=== PATIENT | female | born 1970 | race Caucasian/White ===

== ENCOUNTER 2017-08-21 13:23 | Outpatient (CLI) | payer OTHER | END 2017-08-21 13:45 | disposition home or self-care (01) | LOC: SLEEP 13:23 | PROVIDERS: ATTEND Nurse Practitioner | DX: G47.10 Hypersomnia, unspecified (principal); R06.83 Snoring ==

== ENCOUNTER 2018-12-23 17:08 | Emergency (ER) | payer OTHER ==
[~2018-12-23] VITALS: Ht 167.6 cm; Wt 125.2 kg
[2018-12-23] MEDS ORDERED: ONDANSETRON 4 MG/2 ML (SDV) Z0FRAN IVP ONE (17:30)
[2018-12-23] MEDS ORDERED: morphine INJ 10 MG/ML 1ML (SYR OR VIAL) IVP STA ×2 (17:30→18:45)
[2018-12-23] MEDS: NS IV 1000 ML 1,000 ML IV SCH ×2 (17:47→18:31)
[2018-12-23 17:55] LABS: HEMATOCRIT 39 % (35-52); HEMOGLOBIN 13.1 G/DL (11.5-16.0); MEAN CORPUSCULAR HEMOGLOBIN 34 PG (25-34); MEAN CORPUSCULAR HGB CONC 34 G/DL (32-36); MEAN CORPUSCULAR VOLUME 99 FL (80-99); MEAN PLATELET VOLUME 8.8 FL (7.4-10.4); PLATELET COUNT 304 10^3/uL (130-400); WHITE BLOOD COUNT 11.1 10^3/uL (4.3-11.0)
[2018-12-23 17:56] LABS: BASOPHILS % (AUTO) 0 % (0-10); EOSINOPHILS % (AUTO) 0 % (0-10); LYMPHOCYTES # (AUTO) 0.9 X 10^3 (1.0-4.0); LYMPHOCYTES % (AUTO) 8 % (12-44); MONOCYTES # (AUTO) 0.4 X 10^3 (0.0-1.0); MONOCYTES % (AUTO) 4 % (0-12); NEUTROPHILS # (AUTO) 9.8 X 10^3 (1.8-7.8); NEUTROPHILS % (AUTO) 88 % (42-75)
[2018-12-23 18:15] LABS: ALANINE AMINOTRANSFERASE 20 U/L (0-55); ALBUMIN 4.1 GM/DL (3.2-4.5); ALKALINE PHOSPHATASE 111 U/L (40-136); BAND NEUTROPHILS 22 %; BASOPHILS % (MANUAL) 1 %; BILIRUBIN,TOTAL 0.6 MG/DL (0.1-1.0); BUN/CREATININE RATIO 15; CALCIUM 8.8 MG/DL (8.5-10.1); CARBON DIOXIDE 24 MMOL/L (21-32); CHLORIDE 97 MMOL/L (98-107); CREATININE SERUM 0.65 MG/DL (0.60-1.30); EOSINOPHILS % (MANUAL) 0 %; GFR ESTIMATED > 60; GLUCOSE 97 MG/DL (70-105); LYMPHOCYTES % (MANUAL) 12 %; MONOCYTES % (MANUAL) 2 %; NEUTROPHILS % (MANUAL) 63 %; POTASSIUM 3.5 MMOL/L (3.6-5.0); SODIUM 139 MMOL/L (135-145); TOTAL PROTEIN 7.4 GM/DL (6.4-8.2)
[2018-12-23 18:16] LABS: RBC MORPH NORMAL
--- OUTSIDE RECORDS SUMMARY | 2018-12-23 18:23 | XMS REPORT | Continuity of Care Document ---
Author Organization Unknown Address Unknown Allergies There is no data. Medications There is no data. Problems There is no data. Procedures There is no data. Results There is no data. Encounters ACCT No. Visit Date/Time Discharge Status Pt. Type Provider Facility Loc./Unit Complaint [id number] 12/16/2018 08:40:00 12/16/2018 23:59:59 [facility] Outpatient [facility]
--- OUTSIDE RECORDS SUMMARY | 2018-12-23 18:23 | XMS REPORT ---
Author Author BAKARI ROC Organization [facility] Address [address] [place] [id number] Care Team Providers Care Advanced Analytics Associate Name Role Phone ROC VILLEGAS Unavailable PROBLEMS Unknown Problems ALLERGIES No Information ENCOUNTERS Encounter Location Date Diagnosis [address] [address] October, Environmental and seasonal allergies J30.[address] [address] October, Environmental and seasonal allergies J30.[address] [address] Sep, Environmental and seasonal allergies J30.[address] [address] Sep, [address] [address] Sep, Environmental and seasonal allergies J30.[address] [address] Aug, Environmental and seasonal allergies J30.[address] [address] Aug, [address] [address] Aug, Environmental and seasonal allergies J30.[address] [address] Aug, Environmental and seasonal allergies J30.[address] [address] Aug, Environmental and seasonal allergies J30.[address] [address] Jul, Environmental and seasonal allergies J30.[address] [address] 13 Jul, 2018 Environmental and seasonal allergies J30.89 IMMUNIZATIONS No Known Immunizations SOCIAL HISTORY Never Assessed REASON FOR VISIT Shot PLAN OF CARE VITAL SIGNS MEDICATIONS Unknown Medications RESULTS No Results PROCEDURES No Known procedures INSTRUCTIONS MEDICATIONS ADMINISTERED No Known Medications
[2018-12-23] MEDS ORDERED: IOHEXOL 350 MG/ML 100 ML (OMNIPAQUE 350) VIAL IV ONE (19:00)
[2018-12-23] MEDS ORDERED: HOLD METFORMIN - RECEIVED CONTRAST 20 ML VIAL IV SCH (19:00)
[2018-12-23] MEDS ORDERED: CATHETER FLUSH 10 ML SYR IV PRN (19:00)
[2018-12-23] MEDS ORDERED: NS 100 ML (IVPB) BAG IV ONE (19:00)
--- NOTE | 2018-12-23 19:13 | ED Abdominal Pain ---
General Chief Complaint: Abdominal/GI Problems Stated Complaint: HEADACHE; ABD PAIN Nursing Triage Note: Patient c/o abdominal pain, diarrhea, and headache. States that she wasn't feeling good yesterday and then yesterday evening the diarrhea, headache, and abdominal pain began. Reports that her abdomial pain feels like when she had salmonella posioning. Sepsis Screen: No Definite Risk Source of Information: Patient Exam Limitations: No Limitations History of Present Illness Date Seen by Provider: Dec 23, 2018 Time Seen by Provider: 15:05 Initial Comments Patient is a 48-year-old female presents with diffuse cramping abdominal pain associated with 3-4 episodes of watery diarrhea over the past 12 hours., Pain is migratory cramping with sharp episodes is rated mild to moderate. Patient states she has had similar episode over 2 years ago when treated for salmonella neuritis. She denies blood in stools, recent antibiotics or known GI exposure. Associated symptoms include headache, nausea without vomiting. No fever chills or sweats. No other acute symptoms or complaints. History of cholecystectomy and endometrial ablation. Allergies and Home Medications Allergies Coded Allergies: doxycycline (Verified Allergy, Unknown, 12/23/18) metoclopramide (Verified Allergy, Unknown, 12/23/18) sulfamethoxazole (Verified Allergy, Unknown, 12/23/18) trimethoprim (Verified Allergy, Unknown, 12/23/18) Uncoded Allergies: SULFA (Allergy, Unknown, 12/23/18) Patient Home Medication List Home Medication List Reviewed: Yes Review of Systems Review of Systems Constitutional: see HPI EENTM: No Symptoms Reported Respiratory: No Symptoms Reported Cardiovascular: No Symptoms Reported Gastrointestinal: See HPI Genitourinary: No Symptoms Reported Musculoskeletal: no symptoms reported Skin: no symptoms reported Psychiatric/Neurological: No Symptoms Reported Endocrine: No Symptoms Reported Hematologic/Lymphatic: No Symptoms Reported Past Vmvjakh-Elkava-Dihrbe Hx Past Med/Social Hx: Reviewed Nursing Past Med/Soc Hx Patient Social History Alcohol Use: Occasionally Uses Recreational Drug Use: No Smoking Status: Never a Smoker 2nd Hand Smoke Exposure: No Recent Foreign Travel: No Contact w/Someone Who Travel: No Recent Infectious Disease Expo: No Recent Hopitalizations: No Physical Abuse: No Sexual Abuse: No Mistreated: No Fear: No Seasonal Allergies Seasonal Allergies: No Past Medical History Surgeries: Yes (EGD, Colonoscopy, Edometrial ablation, bilateral knee scope, ) Section, Eye Surgery, Gallbladder, Orthopedic Respiratory: No Cardiac: No Neurological: Yes Gastrointestinal: Yes Gastroesophageal Reflux Musculoskeletal: No Endocrine: No HEENT: No (Bilateral lasik procedure) Cancer: No Psychosocial: No Integumentary: No Blood Disorders: No Physical Exam Vital Signs Vital Signs - First Documented 12/23/18 17:24 Temp 97.6 Pulse 111 Resp 20 B/P (MAP) 102/57 (72) Pulse Ox 97 O2 Delivery Room Air Capillary Refill : Less Than 3 Seconds Height/Weight/BMI Height: 5'6.00" Weight: 276lbs. oz. 125.545833ek; BMI Method:Stated General Appearance: WD/WN, mild distress HEENT: PERRL/EOMI, normal ENT inspection Neck: full range of motion, supple Respiratory: chest non-tender, lungs clear, normal breath sounds Gastrointestinal: soft, no pulsatile mass, abnormal bowel sounds; No distended, No guarding, No rebound; tenderness Extremities: normal range of motion, non-tender Back: normal inspection Skin: normal color, warm/dry Focused Exam Sepsis Stage: Ruled Out Progress/Results/Core Measures Results/Orders Lab Results Laboratory Tests Test 12/23/18 17:40 Range/Units White Blood Count 11.1 H 4.3-11.0 10^3/uL Red Blood Count 3.90 L 4.35-5.85 10^6/uL Hemoglobin 13.1 11.5-16.0 G/DL Hematocrit 39 35-52 % Mean Corpuscular Volume 99 80-99 FL Mean Corpuscular Hemoglobin 34 25-34 PG Mean Corpuscular Hemoglobin Concent 34 32-36 G/DL Red Cell Distribution Width 12.0 10.0-14.5 % Platelet Count 304 130-400 10^3/uL Mean Platelet Volume 8.8 7.4-10.4 FL Neutrophils (%) (Auto) 88 H 42-75 % Lymphocytes (%) (Auto) 8 L 12-44 % Monocytes (%) (Auto) 4 0-12 % Eosinophils (%) (Auto) 0 0-10 % Basophils (%) (Auto) 0 0-10 % Neutrophils # (Auto) 9.8 H 1.8-7.8 X 10^3 Lymphocytes # (Auto) 0.9 L 1.0-4.0 X 10^3 Monocytes # (Auto) 0.4 0.0-1.0 X 10^3 Eosinophils # (Auto) 0.0 0.0-0.3 10^3/uL Basophils # (Auto) 0.0 0.0-0.1 10^3/uL Neutrophils % (Manual) 63 % Lymphocytes % (Manual) 12 % Monocytes % (Manual) 2 % Eosinophils % (Manual) 0 % Basophils % (Manual) 1 % Band Neutrophils 22 % Blood Morphology Comment NORMAL Sodium Level 139 135-145 MMOL/L Potassium Level 3.5 L 3.6-5.0 MMOL/L Chloride Level 97 L 98-107 MMOL/L Carbon Dioxide Level 24 21-32 MMOL/L Anion Gap 18 H 5-14 MMOL/L Blood Urea Nitrogen 10 7-18 MG/DL Creatinine 0.65 0.60-1.30 MG/DL Estimat Glomerular Filtration Rate > 60 BUN/Creatinine Ratio 15 Glucose Level 97 70-105 MG/DL Calcium Level 8.8 8.5-10.1 MG/DL Corrected Calcium 8.7 8.5-10.1 MG/DL Total Bilirubin 0.6 0.1-1.0 MG/DL Aspartate Amino Transf (AST/SGOT) 18 5-34 U/L Alanine Aminotransferase (ALT/SGPT) 20 0-55 U/L Alkaline Phosphatase 111 40-136 U/L Total Protein 7.4 6.4-8.2 GM/DL Albumin 4.1 3.2-4.5 GM/DL Serum Test, Qualitative NEGATIVE NEGATIVE My Orders Orders - ANDRIA PURDY DO Cbc With Automated Diff (12/23/18 17:30) Comprehensive Metabolic Panel (12/23/18 17:30) Hs C Reactive Protein (12/23/18 17:30) Stool Culture (12/23/18 17:30) C Difficile Ag + Toxin A/B. (12/23/18 17:30) Isolation Central Supply Req (12/23/18 17:30) Hcg,Qualitative Serum (12/23/18 17:30) Ns Iv 1000 Ml (Sodium Chloride 0.9%) (12/23/18 17:30) Morphine Injection (Morphine Injection (12/23/18 17:30) Ondansetron Injection (Zofran Injectio (12/23/18 17:30) Manual Differential (12/23/18 17:40) Morphine Injection (Morphine Injection (12/23/18 18:45) Ct Abdomen/Pelvis W (12/23/18 18:45) Iohexol Injection (Omnipaque 350 Mg/Ml 1 (12/23/18 19:00) Received Contrast (Hold Metformin- Contr (12/23/18 19:00) Sodium Chloride Flush (Catheter Flush Sy (12/23/18 19:00) Ns (Ivpb) (Sodium Chloride 0.9% Ivpb Bag (12/23/18 19:00) Ketorolac Injection (Toradol Injection) (12/23/18 20:45) Medications Given in ED Current Medications Medications Dose Ordered Sig/Hugo Route Start Time Stop Time Status Last Admin Dose Admin Iohexol 100 ml ONCE ONCE IV 12/23/18 19:00 12/23/18 19:01 DC 12/23/18 19:12 100 ML Ondansetron HCl 4 mg ONCE ONCE IVP 12/23/18 17:30 12/23/18 17:33 DC 12/23/18 17:47 4 MG Sodium Chloride 10 ml NEEDED PRN IV 12/23/18 19:00 12/23/18 19:12 10 ML Sodium Chloride 100 ml ONCE ONCE IV 12/23/18 19:00 12/23/18 19:01 DC 12/23/18 19:12 100 ML Vital Signs/I&O 12/23/18 17:24 Temp 97.6 Pulse 111 Resp 20 B/P (MAP) 102/57 (72) Pulse Ox 97 O2 Delivery Room Air Blood Pressure Mean: 72 Departure Communication (Admissions) CT abdomen and pelvis shows evidence of ascending and transverse colitis. Lab w ork reviewed and nondiagnostic. Stool sample sent with results pending. Patient received symptomatic leave symptoms. Will continue supportive care with instructions to follow-up with PCP tomorrow for stool culture results. Return precautions reviewed. Patient verbalizes understanding. Discharge instructions prior to departure. Impression Primary Impression: Abdominal pain Additional Impression: Colitis Disposition: HOME, SELF-CARE Condition: Improved Departure-Patient Inst. Decision time for Depature: 20:44 Referrals: ROC VILLEGAS MD (PCP/Family) Primary Care Physician Patient Instructions: Colitis, Acute Abdomen (Belly Pain), Adult (DC) Add. Discharge Instructions: Please drink clear liquids only for the next 6-12 hours, then gradually increase to bland diet as tolerated. Take Zofran as needed for nausea, and hydrocodone and Bentyl as needed for pain. Follow-up with your PCP for stool culture results and reevaluation in the next 1-2 days. Return to ED if worsening symptoms. All discharge instructions reviewed with patient and/or family. Voiced understanding. Scripts Ondansetron (Ondansetron Odt) 4 Mg Tab.rapdis 4 MG PO Q6H, #10 TAB Prov: ANDRIA PURDY DO 12/23/18 Hydrocodone/Acetaminophen ([place] 5-325 Tablet) 1 Each Tablet 1 TAB PO Q4-6HR for Pain MDD 10 TABS for 7 Days, #10 TAB Prov: ANDRIA PURDY DO 12/23/18 Dicyclomine HCl (Dicyclomine HCl) 20 Mg Tablet 20 MG PO QID, #10 TAB Prov: ANDRIA PURDY DO 12/23/18 ANDRIA PURDY DO Dec 23, 2018 19:13
--- NOTE | 2018-12-23 19:31 | Diagnostic Imaging Report ---
INDICATION: Generalized abdominal pain and distention with diarrhea for two days. Previous cholecystectomy and tubal ligation. FINDINGS: Lung bases are clear. The gallbladder is absent. Liver, spleen, pancreas and adrenal glands appear normal. There is a left parapelvic cyst. The kidneys are otherwise normal. Uterus, adnexal structures and urinary bladder are normal. No hernias are present. No vascular calcifications are present. The appendix is normal. There is some wall thickening of the ascending and proximal transverse colon with mild inflammation around this. The descending and sigmoid colon appear normal. No ascites, free air or abnormal adenopathy is present. Bone windows appear normal. IMPRESSION: There is nonspecific colitis of the ascending and transverse colon. Dictated by: Dictated on workstation # [id number]
[2018-12-23] MEDS ORDERED: KETOROLAC 30 MG/ML VIAL IVP ONE (20:45)
[2018-12-23] MEDS ORDERED: HYDR-4226 PO (20:46)
[2018-12-23] MEDS ORDERED: ONDA4TAB11 PO (20:46)
[2018-12-23] MEDS ORDERED: DICY20TA10 PO (20:46)
[2018-12-23 21:13] VITALS: BP 110/51
== END 2018-12-23 21:13 | disposition home or self-care (01) ==
LOC: EDUNIT# 17:08 → ER FS 17:09
DX: K52.9 Noninfective gastroenteritis and colitis, unspecified (principal); K21.9 Gastro-esophageal reflux disease without esophagitis; Z88.1 Allergy status to other antibiotic agents; Z88.2 Allergy status to sulfonamides; Z88.8 Allergy status to other drugs, medicaments and biological substances
CPT/HCPCS: 36415; 74177; 80053; 84703; 85007; 85027; 86141; 87015; 87045; 87046; 87077; 87324; 87449; 87899; 96361; 96374; 96375; 96376

== ENCOUNTER 2018-12-25 11:00 | Emergency (ER) | payer OTHER ==
[~2018-12-25] VITALS: Ht 168.9 cm; Wt 124.7 kg
[~2018-12-25 11:00] MED LIST: DICY20TA10 PO; HYDR-4226 PO; ONDA4TAB11 PO
--- NOTE | 2018-12-25 11:15 | NUR ---
Kiersten Delatorre, reports pt reported having an allergy shot today and pt feels pt is having a reaction.
[2018-12-25] MEDS ORDERED: fentaNYL INJECTION 100 MCG/2 ML AMP IVP STA ×2 (11:39→12:45)
[2018-12-25] MEDS ORDERED: LACTATED RINGERS 1,000 ML IV ONE (11:39)
[2018-12-25] MEDS ORDERED: KETOROLAC 30 MG/ML VIAL IVP STA (11:39)
[2018-12-25 11:58] LABS: BASOPHILS % (AUTO) 0 % (0-10); EOSINOPHILS # (AUTO) 0.4 10^3/uL (0.0-0.3); EOSINOPHILS % (AUTO) 6 % (0-10); HEMATOCRIT 36 % (35-52); HEMOGLOBIN 12.1 G/DL (11.5-16.0); LYMPHOCYTES % (AUTO) 13 % (12-44); MEAN CORPUSCULAR HEMOGLOBIN 33 PG (25-34); MEAN CORPUSCULAR HGB CONC 34 G/DL (32-36); MEAN CORPUSCULAR VOLUME 98 FL (80-99); MEAN PLATELET VOLUME 9.1 FL (7.4-10.4); MONOCYTES # (AUTO) 0.6 X 10^3 (0.0-1.0); MONOCYTES % (AUTO) 8 % (0-12); NEUTROPHILS # (AUTO) 5.7 X 10^3 (1.8-7.8); NEUTROPHILS % (AUTO) 74 % (42-75); PLATELET COUNT 249 10^3/uL (130-400); RED CELL DISTRIBUTION WIDTH 12.1 % (10.0-14.5); WHITE BLOOD COUNT 7.7 10^3/uL (4.3-11.0)
--- NOTE | 2018-12-25 12:02 | ED Abdominal Pain ---
General Chief Complaint: Head/Cervical Problems Stated Complaint: ABD PAIN;HEADACHE Nursing Triage Note: Pt ambulatory to rm 7. Pt reports SAVAGE that began on Friday, pt also c/o diarrhea. Pt reports going to [facility] ED on Fri and was told pt was dehydrated. Pt reports "insides feel like they are on fire." Sepsis Screen: No Definite Risk Source of Information: Patient Exam Limitations: No Limitations History of Present Illness Date Seen by Provider: Dec 25, 2018 Time Seen by Provider: 11:31 Initial Comments Here with complaint of increasing abdominal pain central upper and right side. Did an evaluation 2 days ago for the same and was found to have colitis in the ascending and transverse portion per report. Patient has taken her medicines but still was not feeling well. Still has headache. She has not been able to drink well. She still has diarrhea without blood. No vomiting. She is still concerned about Salmonella. Stool cultures are pending. She has no contacts for Salmonella reported or noted. Denies dysuria. Headache is global and throbbing type. Cramping feeling worse when getting ready to have diarrhea bowel movement. Timing/Duration: 3-4 Days Severity/Quality: Moderate, Cramping Location: RUQ, LUQ, RLQ Radiation: No Radiation, RUQ, LUQ, RLQ Activities at Onset: None Modifying Factors: Improves With Defecating; Worsens With Eating; Improves With Resting Associated Symptoms: No Back Pain; Fatigue; No Swelling/Mass in Abdomen, No Weakness Allergies and Home Medications Allergies Coded Allergies: doxycycline (Verified Allergy, Unknown, 12/23/18) metoclopramide (Verified Allergy, Unknown, 12/23/18) sulfamethoxazole (Verified Allergy, Unknown, 12/23/18) trimethoprim (Verified Allergy, Unknown, 12/23/18) Uncoded Allergies: SULFA (Allergy, Unknown, 12/23/18) Home Medications Dicyclomine HCl 20 Mg Tablet, 20 MG PO QID Prescribed by: ANDRIA PURDY on 12/23/182045 Hydrocodone/Acetaminophen 1 Each Tablet, 1 TAB PO Q4-6HR Prescribed by: ANDRIA PURDY on 12/23/182045 Ondansetron 4 Mg Tab.rapdis, 4 MG PO Q6H Prescribed by: ANDRIA PURDY on 12/23/182045 Patient Home Medication List Home Medication List Reviewed: Yes Review of Systems Review of Systems Constitutional: see HPI; No chills, No fever EENTM: No Symptoms Reported Respiratory: No Symptoms Reported Cardiovascular: Denies Chest Pain, Denies Edema; Lightheadedness, Palpitations Gastrointestinal: Abdominal Pain, Diarrhea, Nausea; Denies Vomiting Genitourinary: No Symptoms Reported Musculoskeletal: no symptoms reported Skin: no symptoms reported Psychiatric/Neurological: No Symptoms Reported All Other Systems Reviewed Negative Unless Noted: Yes Past Lqftdky-Hrdybi-Pzjbmv Hx Past Med/Social Hx: Reviewed Nursing Past Med/Soc Hx Patient Social History Alcohol Use: Occasionally Uses Recreational Drug Use: No 2nd Hand Smoke Exposure: No Recent Foreign Travel: No Contact w/Someone Who Travel: No Recent Infectious Disease Expo: No Recent Hopitalizations: No Seasonal Allergies Seasonal Allergies: No Past Medical History Surgeries: Yes (EGD, Colonoscopy, Edometrial ablation, bilateral knee scope, ) Section, Eye Surgery, Gallbladder, Orthopedic Respiratory: No Cardiac: No Neurological: Yes Gastrointestinal: Yes Gastroesophageal Reflux Musculoskeletal: No Endocrine: No HEENT: No (Bilateral lasik procedure) Cancer: No Psychosocial: No Integumentary: No Blood Disorders: No Family Medical History Reviewed Nursing Family Hx Physical Exam Vital Signs Vital Signs - First Documented 12/25/18 11:06 Temp 97.2 Pulse 93 Resp 18 B/P (MAP) 128/92 (104) Pulse Ox 97 O2 Delivery Room Air Capillary Refill : Less Than 3 Seconds Height/Weight/BMI Height: 5'6.50" Weight: 275lbs. oz. 124.408362zh; BMI Method:Stated General Appearance: WD/WN, no apparent distress HEENT: PERRL/EOMI, pharynx normal Neck: full range of motion, supple Respiratory: lungs clear, normal breath sounds Cardiovascular: regular rate, rhythm, no murmur Gastrointestinal: non tender, soft Extremities: non-tender, normal inspection Back: normal inspection, no CVA tenderness, no vertebral tenderness Neurologic/Psychiatric: alert, oriented x 3 Skin: normal color, warm/dry Progress/Results/Core Measures Results/Orders Lab Results Laboratory Tests Test 12/25/18 11:48 12/25/18 12:00 Range/Units White Blood Count 7.7 4.3-11.0 10^3/uL Red Blood Count 3.69 L 4.35-5.85 10^6/uL Hemoglobin 12.1 11.5-16.0 G/DL Hematocrit 36 35-52 % Mean Corpuscular Volume 98 80-99 FL Mean Corpuscular Hemoglobin 33 25-34 PG Mean Corpuscular Hemoglobin Concent 34 32-36 G/DL Red Cell Distribution Width 12.1 10.0-14.5 % Platelet Count 249 130-400 10^3/uL Mean Platelet Volume 9.1 7.4-10.4 FL Neutrophils (%) (Auto) 74 42-75 % Lymphocytes (%) (Auto) 13 12-44 % Monocytes (%) (Auto) 8 0-12 % Eosinophils (%) (Auto) 6 0-10 % Basophils (%) (Auto) 0 0-10 % Neutrophils # (Auto) 5.7 1.8-7.8 X 10^3 Lymphocytes # (Auto) 1.0 1.0-4.0 X 10^3 Monocytes # (Auto) 0.6 0.0-1.0 X 10^3 Eosinophils # (Auto) 0.4 H 0.0-0.3 10^3/uL Basophils # (Auto) 0.0 0.0-0.1 10^3/uL Sodium Level 140 135-145 MMOL/L Potassium Level 3.3 L 3.6-5.0 MMOL/L Chloride Level 104 98-107 MMOL/L Carbon Dioxide Level 23 21-32 MMOL/L Anion Gap 13 5-14 MMOL/L Blood Urea Nitrogen 6 L 7-18 MG/DL Creatinine 0.71 0.60-1.30 MG/DL Estimat Glomerular Filtration Rate > 60 BUN/Creatinine Ratio 8 Glucose Level 88 70-105 MG/DL Calcium Level 8.7 8.5-10.1 MG/DL Corrected Calcium 8.9 8.5-10.1 MG/DL Magnesium Level 2.0 1.8-2.4 MG/DL Total Bilirubin 0.4 0.1-1.0 MG/DL Aspartate Amino Transf (AST/SGOT) 16 5-34 U/L Alanine Aminotransferase (ALT/SGPT) 21 0-55 U/L Alkaline Phosphatase 104 40-136 U/L Total Protein 6.6 6.4-8.2 GM/DL Albumin 3.7 3.2-4.5 GM/DL Urine Color YELLOW Urine Clarity CLEAR Urine pH 6 5-9 Urine Specific Oliver 1.015 L 1.016-1.022 Urine Protein 2+ H NEGATIVE Urine Glucose (UA) NEGATIVE NEGATIVE Urine Ketones 4+ H NEGATIVE Urine Nitrite NEGATIVE NEGATIVE Urine Bilirubin NEGATIVE NEGATIVE Urine Urobilinogen NORMAL NORMAL MG/DL Urine Leukocyte Esterase 1+ H NEGATIVE Urine RBC (Auto) 3+ H NEGATIVE Urine RBC RARE /HPF Urine WBC 0-2 /HPF Urine Squamous Epithelial Cells 5-10 /HPF Urine Crystals NONE /LPF Urine Bacteria FEW H /HPF Urine Casts NONE /LPF Urine Mucus SMALL H /LPF Urine Culture Indicated NO My Orders Orders - STEFANIA HYLTON MD Cbc With Automated Diff (12/25/18 11:39) Comprehensive Metabolic Panel (12/25/18 11:39) Magnesium (12/25/18 11:39) Ua Culture If Indicated (12/25/18 11:39) Ed Iv/Invasive Line Start (12/25/18 11:39) Lactated Ringers (Lr 1000 Ml Iv Solution (12/25/18 11:39) Fentanyl Injection (Sublimaze Injection (12/25/18 11:39) Ketorolac Injection (Toradol Injection) (12/25/18 11:39) D5 Ns 1000 Ml Iv Solution (Dextrose 5%/0 (12/25/18 12:41) Fentanyl Injection (Sublimaze Injection (12/25/18 12:45) Hs C Reactive Protein (12/25/18 15:06) Dexamethasone Injection (Decadron Inject (12/25/18 15:30) Medications Given in ED Current Medications Medications Dose Ordered Sig/Hugo Route Start Time Stop Time Status Last Admin Dose Admin Lactated Ringer's 1,000 ml @ 0 mls/hr Q0M ONCE IV 12/25/18 11:39 12/25/18 11:44 DC 12/25/18 11:55 1,000 MLS/HR Vital Signs/I&O 12/25/18 11:06 Temp 97.2 Pulse 93 Resp 18 B/P (MAP) 128/92 (104) Pulse Ox 97 O2 Delivery Room Air Blood Pressure Mean: 104 Progress Progress Note : Progress Note And evaluated. IV, labs, UA, lactated Ringer's 1 L bolus, fentanyl 50 g IV and Toradol 30 mg IV ordered. Monitor patient. Patient does have 4+ ketones in the urine. Repeat fluids bolus with D5NS 1 L. Patient did get second dose of fentanyl for headache. This has helped. 1520: Patient is a little better but still has mild headache. All of her labs were reviewed and actually are much improved from 2 days ago and showed no inflammatory response. Given her headache, we will use secondary line of treatment with Decadron and this potentially can also help with the colitis symptoms. This was discussed with patient and family who agree. Otherwise no reason for admission at this point and no reason for further evaluation including CT at this point. Discharge instructions given. Discharged home with instructions. Patient verbalize understanding instructions and agreement with plan. Departure Impression Primary Impression: Headache Qualified Codes: R51 - Headache Additional Impressions: Diarrhea Qualified Codes: R19.7 - Diarrhea, unspecified Dehydration Disposition: HOME, SELF-CARE Condition: Stable Departure-Patient Inst. Decision time for Depature: 15:28 Referrals: ROC VILLEGAS MD (PCP/Family) Primary Care Physician Patient Instructions: Dehydration, Adult (DC), Diarrhea in Adolescents and Adults, Headache, Adult (DC) Add. Discharge Instructions: All discharge instructions reviewed with patient and/or family. Voiced understanding. You should initiate probiotics. You can take this as capsules or you can get it in yogurt supplements. Either or both are fine. Drink plenty of fluids. You should stick with clear light diet over the next few days and then slowly advance as tolerated as he started to feel better. Follow-up with your doctor early next week for recheck and further evaluation. Return for worse pain, fever, vomiting, weakness, breathing problems, blood in your vomit or stool, increasing abdominal pain or other concerns as needed. STEFANIA HYLTON MD Dec 25, 2018 12:02
[2018-12-25 12:10] LABS: ALANINE AMINOTRANSFERASE 21 U/L (0-55); ALBUMIN 3.7 GM/DL (3.2-4.5); ALKALINE PHOSPHATASE 104 U/L (40-136); BILIRUBIN,TOTAL 0.4 MG/DL (0.1-1.0); BUN/CREATININE RATIO 8; CALCIUM 8.7 MG/DL (8.5-10.1); CARBON DIOXIDE 23 MMOL/L (21-32); CHLORIDE 104 MMOL/L (98-107); CREATININE SERUM 0.71 MG/DL (0.60-1.30); GFR ESTIMATED > 60; GLUCOSE 88 MG/DL (70-105); POTASSIUM 3.3 MMOL/L (3.6-5.0); SODIUM 140 MMOL/L (135-145); TOTAL PROTEIN 6.6 GM/DL (6.4-8.2)
[2018-12-25 12:13] LABS: BILIRUBIN,URINE NEGATIVE (NEGATIVE); CLARITY,URINE CLEAR; COLOR,URINE YELLOW; GLUCOSE, URINE (UA) NEGATIVE (NEGATIVE); KETONES,URINE 4+ (NEGATIVE); LEUKOCYTE ESTERASE ,URINE 1+ (NEGATIVE); NITRITE,URINE NEGATIVE (NEGATIVE); PH,URINE 6 (5-9); PROTEIN,URINE 2+ (NEGATIVE); UROBILINOGEN,URINE NORMAL (NORMAL)
[2018-12-25 12:22] LABS: BACTERIA,URINE FEW /HPF; RBC,URINE RARE /HPF; WBC,URINE 0-2 /HPF
[2018-12-25] MEDS ORDERED: D5 NS 1000 ML IV SOLUTION 1,000 ML IV STA (12:41)
--- NOTE | 2018-12-25 13:37 | NUR ---
Pt reports pain has resolved at this time.
[2018-12-25] MEDS ORDERED: DEXAMETHASONE 10 MG/ML (DECADRON) 1 ML VIAL IV ONE (15:30)
[2018-12-25 15:42] VITALS: BP 118/61
--- OUTSIDE RECORDS SUMMARY | 2018-12-25 19:14 | XMS REPORT | Continuity of Care Document ---
Author Organization Unknown Address Unknown Allergies There is no data. Medications There is no data. Problems There is no data. Procedures There is no data. Results There is no data. Encounters ACCT No. Visit Date/Time Discharge Status Pt. Type Provider Facility Loc./Unit Complaint [id number] 12/25/2018 09:20:00 [facility] Outpatient ROC VILLEGAS [facility]
== END 2018-12-25 15:42 | disposition home or self-care (01) ==
LOC: EDUNIT# 11:00 → ER 11:01
DX: E86.0 Dehydration (principal); R19.7 Diarrhea, unspecified; R51 Headache; K21.9 Gastro-esophageal reflux disease without esophagitis; Z87.19 Personal history of other diseases of the digestive system; Z88.1 Allergy status to other antibiotic agents; Z88.2 Allergy status to sulfonamides; Z88.8 Allergy status to other drugs, medicaments and biological substances
CPT/HCPCS: 36415; 80053; 81000; 83735; 85025; 86141; 96361; 96374; 96375; 96376

== ENCOUNTER → 2019-10-08 | Outpatient (CLI) | payer BC ==
[2019-10-08 13:07] LABS: ALANINE AMINOTRANSFERASE 15 U/L (0-55); ALBUMIN 4.1 GM/DL (3.2-4.5); ALKALINE PHOSPHATASE 119 U/L (40-136); BILIRUBIN,TOTAL 0.5 MG/DL (0.1-1.0); BUN/CREATININE RATIO 19; CALCIUM 9.1 MG/DL (8.5-10.1); CARBON DIOXIDE 26 MMOL/L (21-32); CHLORIDE 101 MMOL/L (98-107); CREATININE SERUM 0.75 MG/DL (0.60-1.30); GFR ESTIMATED > 60; GLUCOSE 96 MG/DL (70-105); POTASSIUM 4.1 MMOL/L (3.6-5.0); SODIUM 139 MMOL/L (135-145)
[2019-10-08 15:45] LABS: HDL CHOLESTEROL 60 MG/DL (40-60)
[2019-10-08 16:18] LABS: TRIGLYCERIDES 92 MG/DL (<150); VLDL CHOLESTEROL 18 MG/DL (5-40)
[2019-10-08 16:23] LABS: CHOLESTEROL 205 MG/DL (< 200)
== END ==
LOC: LAB FS 11:15
PROVIDERS: ATTEND Family Medicine
DX: Z00.00 Encounter for general adult medical examination without abnormal findings (principal)
CPT/HCPCS: 36415; 80053; 80061; 84443

== ENCOUNTER → 2019-11-01 | Outpatient (CLI) | payer BC ==
[2019-11-02 15:45] LABS: ALBUMIN 4.2 GM/DL (3.2-4.5); BILIRUBIN,DIRECT 0.2 MG/DL (0.0-0.3); BILIRUBIN,INDIRECT 0.3 MG/DL; BILIRUBIN,TOTAL 0.5 MG/DL (0.1-1.0); TOTAL PROTEIN 7.5 GM/DL (6.4-8.2)
== END ==
LOC: LAB FS 18:14
PROVIDERS: ATTEND Family Medicine
DX: Z51.81 Encounter for therapeutic drug level monitoring (principal); Z79.899 Other long term (current) drug therapy
CPT/HCPCS: 36415; 80076

== ENCOUNTER → 2019-12-02 | Outpatient (CLI) | payer BC ==
[2019-12-02 13:06] LABS: BILIRUBIN,DIRECT < 0.2 MG/DL (0.0-0.3); BILIRUBIN,INDIRECT 0.1 MG/DL; BILIRUBIN,TOTAL 0.3 MG/DL (0.1-1.0)
[2019-12-02 13:07] LABS: ALANINE AMINOTRANSFERASE 17 U/L (0-55); ALBUMIN 3.9 GM/DL (3.2-4.5); ALKALINE PHOSPHATASE 102 U/L (40-136); TOTAL PROTEIN 6.7 GM/DL (6.4-8.2)
== END ==
LOC: LAB FS 10:08
PROVIDERS: ATTEND Family Medicine
DX: Z01.89 Encounter for other specified special examinations (principal); Z79.899 Other long term (current) drug therapy
CPT/HCPCS: 36415; 80076

== ENCOUNTER 2020-08-25 11:07 | Emergency (ER) | payer BC ==
[~2020-08-25] VITALS: Ht 165.1 cm; Wt 117.1 kg
[2020-08-25] MEDS ORDERED: NS IV 1000 ML 1,000 ML IV STA ×2 (11:22→12:51)
--- NOTE | 2020-08-25 11:37 | ED General ---
General Chief Complaint: Dizziness/Syncope Stated Complaint: DIZZINESS | LIGHT HEADED Nursing Triage Note: Patient reports she had gastric bypass surgery on August 07, states she has not been able to keep up with drinking fluids, states she began feeling more weak, fatigued, and lightheaded yesterday. Patient reports she saw Dr. Villegas in the office today and they were unable to get a blood pressure reading. Patient referred to the ED for evaluation and treatment. Nursing Sepsis Screen: No Definite Risk Source of Information: Patient History of Present Illness Date Seen by Provider: Aug 25, 2020 Time Seen by Provider: 11:07 Initial Comments 50-year-old female presents to the ED with complaints of feeling weak, fatigued, lightheaded and dehydrated. She had a gastric bypass surgery with Dr. Wesley Bates from [facility] on August 07. She has had trouble trying to drink enough fluids in the last few days. She was seen for a checkup with Dr. Craig on Friday of this week and was told that she was needed to drink more fluids at that visit. She has continued have more trouble drinking fluids since then. She has had near syncopal episodes at home. She is also having trouble trying to eat or get any protein in her system. She states that the thought of eating makes her feel nauseated. She has had loose stools. She denies any fever or chills. She has had mild aching in her abdomen from the surgery but no severe pain. She denies any burning or pain with urination. She has intermittent nausea but no vomiting. She had gone to Dr. Villegas today for routine checkup and because of still feeling so poorly they referred her to the emergency department. Timing/Duration: 3-4 Days Severity: Severe Modifying Factors: worse with Movement Associated Systoms: No Chest Pain, No Cough, No Diaphoresis, No Fever/Chills, No Headaches; Malaise; No Rash, No Seizure, No Shortness of Air, No Syncope (near syncope); Weakness (generalized) Allergies and Home Medications Allergies Coded Allergies: adhesive (Verified Allergy, Unknown, 08/25/20) doxycycline (Verified Allergy, Unknown, 12/23/18) metoclopramide (Verified Allergy, Unknown, 12/23/18) sulfamethoxazole (Verified Allergy, Unknown, 12/23/18) trimethoprim (Verified Allergy, Unknown, 12/23/18) Uncoded Allergies: SULFA (Allergy, Unknown, 12/23/18) Home Medications Dicyclomine HCl 20 Mg Tablet, 20 MG PO QID Prescribed by: ANDRIA PURDY on 12/23/182045 Hydrocodone/Acetaminophen 1 Each Tablet, 1 TAB PO Q4-6HR Prescribed by: ANDRIA PURDY on 12/23/182045 Ondansetron 4 Mg Tab.rapdis, 4 MG PO Q6H Prescribed by: ANDRIA PURDY on 12/23/182045 Patient Home Medication List Home Medication List Reviewed: Yes Review of Systems Review of Systems Constitutional: No chills, No diaphoresis; dizziness (especially with standing and changing positions); No fever; malaise, weakness (general) EENTM: no symptoms reported Respiratory: No cough, No short of breath Cardiovascular: No chest pain, No edema, No syncope (near syncope several times in last few days) Gastrointestinal: abdominal pain (mild diffuse aching ), diarrhea (loose stools since surgery), loss of appetite (food does not sound good and makes her na useated thinking of eating), nausea; No vomiting Genitourinary: decreased output; No dysuria, No frequency Musculoskeletal: no symptoms reported Skin: No rash Psychiatric/Neurological: Denies Headache, Denies Numbness, Denies Paresthesia; Weakness (general) Hematologic/Lymphatic: No Symptoms Reported Immunological/Allergic: no symptoms reported Past Xfhxvqo-Toraod-Hekzoo Hx Past Med/Social Hx: Reviewed Nursing Past Med/Soc Hx Patient Social History Alcohol Use: Occasionally Uses Smoking Status: Never a Smoker 2nd Hand Smoke Exposure: No Recent Infectious Disease Expo: No Recent Hopitalizations: No Seasonal Allergies Seasonal Allergies: No Past Medical History Surgeries: Yes (EGD, Colonoscopy, Edometrial ablation, bilateral knee scope,gastric bypass) Section, Eye Surgery, Gallbladder, Orthopedic Respiratory: No Cardiac: No Neurological: No Genitourinary: No Gastrointestinal: Yes Gastroesophageal Reflux Musculoskeletal: No Endocrine: No HEENT: No (Bilateral lasik procedure) Cancer: No Psychosocial: No Integumentary: No Blood Disorders: No Physical Exam Vital Signs Vital Signs - First Documented 08/25/20 11:08 Temp 37.1 Pulse 79 Resp 18 B/P (MAP) 125/93 (104) Pulse Ox 99 O2 Delivery Room Air Capillary Refill : Less Than 3 Seconds Height, Weight, BMI Height: 5'6.50" Weight: 275lbs. oz. [id number]; 42.00 BMI Method:Stated General Appearance: Mild Distress, Obese HEENT: PERRL/EOMI; No Moist Mucous Membranes (slightly dry mucous membranes) Neck: Full Range of Motion, Non Tender, Supple Respiratory: Chest Non Tender, Lungs Clear, Normal Breath Sounds, No Accessory Muscle Use, No Respiratory Distress Cardiovascular: Regular Rate, Rhythm, Normal Peripheral Pulses Gastrointestinal: Normal Bowel Sounds, No Pulsatile Mass, Soft Extremity: Normal Capillary Refill, No Pedal Edema Neurologic/Psychiatric: Alert, Oriented x3, client care coordinator II-XII Norm as Tested Skin: Normal Color, Warm/Dry Progress/Results/Core Measures Suspected Sepsis Recent Fever Within 48 Hours: No Infection Criteria Present: None New/Unexplained Altered Menta: No Sepsis Screen: No Definite Risk SIRS Temperature: Pulse: 79 Respiratory Rate: 18 Laboratory Tests 08/25/20 11:35: White Blood Count 4.7 Blood Pressure 125 /93 Mean: 104 Laboratory Tests 08/25/20 11:35: Creatinine 0.78, Platelet Count 278, Total Bilirubin 0.7 Results/Orders Lab Results Laboratory Tests Test 08/25/20 11:35 08/25/20 12:02 Range/Units White Blood Count 4.7 4.3-11.0 10^3/uL Red Blood Count 4.30 L 4.35-5.85 10^6/uL Hemoglobin 14.2 11.5-16.0 G/DL Hematocrit 42 35-52 % Mean Corpuscular Volume 97 80-99 FL Mean Corpuscular Hemoglobin 33 25-34 PG Mean Corpuscular Hemoglobin Concent 34 32-36 G/DL Red Cell Distribution Width 12.6 10.0-14.5 % Platelet Count 278 130-400 10^3/uL Mean Platelet Volume 10.2 7.4-10.4 FL Immature Granulocyte % (Auto) 0 % Neutrophils (%) (Auto) 57 42-75 % Lymphocytes (%) (Auto) 29 12-44 % Monocytes (%) (Auto) 12 0-12 % Eosinophils (%) (Auto) 2 0-10 % Basophils (%) (Auto) 1 0-10 % Neutrophils # (Auto) 2.7 1.8-7.8 X 10^3 Lymphocytes # (Auto) 1.4 1.0-4.0 X 10^3 Monocytes # (Auto) 0.6 0.0-1.0 X 10^3 Eosinophils # (Auto) 0.1 0.0-0.3 10^3/uL Basophils # (Auto) 0.0 0.0-0.1 10^3/uL Immature Granulocyte # (Auto) 0.0 0.0-0.1 10^3/uL Sodium Level 140 135-145 MMOL/L Potassium Level 3.3 L 3.6-5.0 MMOL/L Chloride Level 100 98-107 MMOL/L Carbon Dioxide Level 24 21-32 MMOL/L Anion Gap 16 H 5-14 MMOL/L Blood Urea Nitrogen 9 7-18 MG/DL Creatinine 0.78 0.60-1.30 MG/DL Estimat Glomerular Filtration Rate > 60 BUN/Creatinine Ratio 12 Glucose Level 93 70-105 MG/DL Calcium Level 9.3 8.5-10.1 MG/DL Corrected Calcium 9.1 8.5-10.1 MG/DL Magnesium Level 2.1 1.6-2.4 MG/DL Total Bilirubin 0.7 0.1-1.0 MG/DL Aspartate Amino Transf (AST/SGOT) 184 H 5-34 U/L Alanine Aminotransferase (ALT/SGPT) 430 H 0-55 U/L Alkaline Phosphatase 176 H 40-136 U/L Troponin I < 0.30 <0.30 NG/ML Total Protein 7.4 6.4-8.2 GM/DL Albumin 4.3 3.2-4.5 GM/DL Lipase 112 H 8-78 U/L Urine Color YELLOW Urine Clarity SL CLOUDY Urine pH 6.5 5-9 Urine Specific [place] <=1.005 1.016-1.022 Urine Protein NEGATIVE NEGATIVE Urine Glucose (UA) NEGATIVE NEGATIVE Urine Ketones TRACE H NEGATIVE Urine Nitrite NEGATIVE NEGATIVE Urine Bilirubin NEGATIVE NEGATIVE Urine Urobilinogen 0.2 < = 1.0 MG/DL Urine Leukocyte Esterase NEGATIVE NEGATIVE Urine RBC (Auto) NEGATIVE NEGATIVE Urine RBC NONE /HPF Urine WBC 2-5 /HPF Urine Squamous Epithelial Cells 25-50 H /HPF Urine Crystals NONE /LPF Urine Bacteria MODERATE H /HPF Urine Casts NONE /LPF Urine Mucus NEGATIVE /LPF Urine Culture Indicated NO My Orders Orders - CARYN TATE MD Comprehensive Metabolic Panel (08/25/20 11:13) Lipase (08/25/20 11:13) Ua Culture If Indicated (08/25/20 11:13) Ed Iv/Invasive Line Start (08/25/20 11:13) Cbc With Automated Diff (08/25/20 11:13) Ekg Tracing (08/25/20 11:13) Monitor-Rhythm Ecg Trace Only (08/25/20 11:13) Magnesium (08/25/20 11:13) Troponin I Fs (08/25/20 11:13) Orthostatic Vital Signs (Adult (08/25/20 11:22) Ns Iv 1000 Ml (Sodium Chloride 0.9%) (08/25/20 11:22) Pantoprazole Injection (Protonix Injecti (08/25/20 12:31) Promethazine Injection (Phenergan Injec (08/25/20 12:51) Thiamine Injection (Vitamin B-1 Injectio (08/25/20 12:51) Ns Iv 1000 Ml (Sodium Chloride 0.9%) (08/25/20 12:51) Ketorolac Injection (Toradol Injection) (08/25/20 13:15) Medications Given in ED Current Medications Medications Dose Ordered Sig/Hugo Route Start Time Stop Time Status Last Admin Dose Admin Ketorolac Tromethamine 30 mg ONCE ONCE IVP 08/25/20 13:15 08/25/20 13:16 DC 08/25/20 13:16 30 MG Vital Signs/I&O 08/25/20 08/25/20 11:08 12:01 Temp 37.1 Pulse 79 79 76 80 Resp 18 B/P (MAP) 125/93 (104) 115/56 (75) 118/75 (89) 102/58 (73) Pulse Ox 99 O2 Delivery Room Air Capillary Refill : Less Than 3 Seconds Blood Pressure Mean: 104 Progress Note #1: Progress Note obtain labs, ECG, UA, electrolytes. Place on monitor technician to watch heart rate and rhythm since she has had recent gastric bypass and is complaining of near syncope and dehydration. Currently she is sinus rhythm with a rate of 80 without ectopy. Check cardiac enzymes as well. Check Orthostatic vital signs. Differential diagnosis included dehydration, electrolyte imbalance, UTI, myocardial infarction, hypomagnesemia, hypokalemia, acute renal failure. Give IVF 1 L NS bolus to start trying to help with hydration. Progress Note #2: Time: 11:58 Progress Note CBC without acute significant abnormality and has normal WBC of 4.7 with normal differential. ECG is a sinus rhythm with rate of 68 bpm without ectopy but has artifact on tracing. No acute ST elevation. Telemetry monitoring continues to show sinus rhythm with rate 70s. Progress Note #3: Time: 12:17 Progress Note d/w Dr. Wesley Bates from [facility]. Updated about vitals and exam and labs so far. UA pending. He recommends IV thiamine, IV phenergan if available, IF not then Zofran. CT scan if having pain and concern for ulceration or perforation. So far I advised him that she was not having signs of perforation or ulceration to indicate need for CT scan at this point. UA still pending but in terms of LFTs elevated he reports that is common after surgery and will stay up sometimes up to a year post surgery before normalizing and can be related to rapid weight loss and surgery both. If she is able to be hydrated and treated at home then continue that way and he can recheck her early next week and do EGD if needed to look for an ulceration. Progress Note #4: Time: 12:47 Progress Note Updated pt and her son. With labs looking ok and after review with Dr. Bates will give meds of Thiamine 100 mg IM, Phenergan 25 mg IM, Saline 1 L IV for 2nd bolus of a Liter. Plan discharge to home after this and encourage her to continue with gatorade and oral intake at home. Solution Sales Senior Executive on follow up and return precautions. Check with clinic early next week if needed for continued concerns with Dr. Bates. Progress Note #5: Time: 13:08 Progress Note While getting phenergan, Thiamine, Protonix and 2nd Liter of NS pt told nurse that she has a headache now so will give a single dose of Toradol. In general she should avoid NSAIDS with the bypass, especially by mouth, but as a 1 time dose by IV she should be ok. If she still has a headache can give Acetaminophen on top of that. ECG Initial ECG Impression Date: Aug 25, 2020 Initial ECG Impression Time: 11:44 Initial ECG Rate: 68 Initial ECG Rhythm: Normal Sinus Initial ECG Comparisson: No Previous ECG Available Comment Normal sinus rhythm with rate fo 68 bpm and artifact on tracing. Low voltage in precordial leads. QT interval of 405 ms and QTc interval of [address] elevation. No prior tracing immediately available for compaison. Departure Impression Primary Impression: Dehydration Additional Impressions: Near syncope S/P gastric bypass Disposition: 01 HOME, SELF-CARE Condition: Stable Departure-Patient Inst. Decision time for Depature: 12:58 Referrals: ROC VILLEGAS MD (PCP/Family) Primary Care Physician Patient Instructions: Dehydration, Adult ED, Near Fainting (DC), Hattie-en-Y Gastric Bypass (DC) Add. Discharge Instructions: Continue to sip on fluids and push fluids and protein at home. Follow up with Dr. Bates next week if not improving or having more problems/concerns. Return or seek medical care sooner over the weekend if having problems and not able to make it until you can see Dr. Bates early next week if needed. All discharge instructions reviewed with patient and/or family. Voiced understanding. CARYN TATE MD Aug 25, 2020 11:36
[2020-08-25 11:54] LABS: HEMATOCRIT 42 % (35-52); HEMOGLOBIN 14.2 G/DL (11.5-16.0); LYMPHOCYTES % (AUTO) 29 % (12-44); MEAN CORPUSCULAR HEMOGLOBIN 33 PG (25-34); MEAN CORPUSCULAR HGB CONC 34 G/DL (32-36); MEAN CORPUSCULAR VOLUME 97 FL (80-99); MEAN PLATELET VOLUME 10.2 FL (7.4-10.4); MONOCYTES % (AUTO) 12 % (0-12); NEUTROPHILS % (AUTO) 57 % (42-75); PLATELET COUNT 278 10^3/uL (130-400); WHITE BLOOD COUNT 4.7 10^3/uL (4.3-11.0)
[2020-08-25 11:55] LABS: BASOPHILS % (AUTO) 1 % (0-10); EOSINOPHILS # (AUTO) 0.1 10^3/uL (0.0-0.3); EOSINOPHILS % (AUTO) 2 % (0-10); LYMPHOCYTES # (AUTO) 1.4 X 10^3 (1.0-4.0); MONOCYTES # (AUTO) 0.6 X 10^3 (0.0-1.0); NEUTROPHILS # (AUTO) 2.7 X 10^3 (1.8-7.8)
[2020-08-25 12:00] LABS: BUN/CREATININE RATIO 12; CALCIUM 9.3 MG/DL (8.5-10.1); CARBON DIOXIDE 24 MMOL/L (21-32); CHLORIDE 100 MMOL/L (98-107); CREATININE SERUM 0.78 MG/DL (0.60-1.30); GFR ESTIMATED > 60; GLUCOSE 93 MG/DL (70-105); POTASSIUM 3.3 MMOL/L (3.6-5.0); SODIUM 140 MMOL/L (135-145)
[2020-08-25 12:01] VITALS: BP_SYST 102; BP_SYST 115; BP_SYST 118; BP_DIAS 56; BP_DIAS 58; BP_DIAS 75
[2020-08-25 12:01] LABS: ALANINE AMINOTRANSFERASE 430 U/L (0-55); ALBUMIN 4.3 GM/DL (3.2-4.5); ALKALINE PHOSPHATASE 176 U/L (40-136); BILIRUBIN,TOTAL 0.7 MG/DL (0.1-1.0); LIPASE 112 U/L (8-78); MAGNESIUM 2.1 MG/DL (1.6-2.4); TOTAL PROTEIN 7.4 GM/DL (6.4-8.2)
[2020-08-25 12:28] LABS: CLARITY,URINE SL CLOUDY; COLOR,URINE YELLOW
[2020-08-25 12:29] LABS: BACTERIA,URINE MODERATE /HPF; BILIRUBIN,URINE NEGATIVE (NEGATIVE); GLUCOSE, URINE (UA) NEGATIVE (NEGATIVE); KETONES,URINE TRACE (NEGATIVE); LEUKOCYTE ESTERASE ,URINE NEGATIVE (NEGATIVE); NITRITE,URINE NEGATIVE (NEGATIVE); PH,URINE 6.5 (5-9); PROTEIN,URINE NEGATIVE (NEGATIVE); SQUAMOUS EPITHELIAL CELL,UR 25-50 /HPF
[2020-08-25] MEDS ORDERED: PANTOPRAZOLE 40 MG (PROTONIX) VIAL IV STA (12:31)
[2020-08-25] MEDS ORDERED: PROMETHAZINE INJ 25 MG/ML (PHENERGAN) AMP IVP STA (12:31)
[2020-08-25] MEDS ORDERED: PROMETHAZINE INJ 25 MG/ML (PHENERGAN) AMP IM STA (12:51)
[2020-08-25] MEDS ORDERED: THIAMINE 100 MG/ML 2 ML (VITAMIN B-1) VIAL IM STA (12:51)
[2020-08-25] MEDS ORDERED: KETOROLAC 30 MG/ML VIAL IVP ONE (13:15)
[2020-08-25 14:00] VITALS: BP 117/75
== END 2020-08-25 14:00 | disposition home or self-care (01) ==
LOC: EDUNIT# 11:07 → ER FS 11:09
DX: R55 Syncope and collapse (principal); E86.0 Dehydration; Z98.84 Bariatric surgery status; Z88.1 Allergy status to other antibiotic agents; Z88.2 Allergy status to sulfonamides; Z88.8 Allergy status to other drugs, medicaments and biological substances; Z91.048 Other nonmedicinal substance allergy status
CPT/HCPCS: 36415; 80053; 81000; 83690; 83735; 84484; 85025; 93005; 93041

== ENCOUNTER → 2021-04-06 | Outpatient (CLI) | payer BC | LOC: LAB FS 10:06 | PROVIDERS: ATTEND Student in an Organized Health Care Education/Training Program | DX: E03.9 Hypothyroidism, unspecified (principal); E55.9 Vitamin D deficiency, unspecified | CPT/HCPCS: 36415; 82306; 82533; 84443 ==

== ENCOUNTER → 2021-09-12 | Outpatient (CLI) | payer BC ==
[~2021-09-12] MED LIST changes: +DICY20TA PO; -DICY20TA10 PO
--- NOTE | 2021-09-12 19:05 | Diagnostic Imaging Report ---
INDICATION: Left shoulder injury. EXAMINATION: AP, transscapular and axillary views of left shoulder were obtained. FINDINGS: No acute fracture or dislocation is identified. No abnormal lytic or sclerotic focus is seen, and there is no radiopaque foreign body. IMPRESSION: No acute abnormality. Dictated by: Dictated on workstation # [id number]
== END ==
LOC: RAD FS 18:32
PROVIDERS: ATTEND Orthopaedic Surgery
DX: S49.92XA Unspecified injury of left shoulder and upper arm, initial encounter (principal); X58.XXXA Exposure to other specified factors, initial encounter
CPT/HCPCS: 73030

== ENCOUNTER → 2021-09-13 | Outpatient (CLI) | payer BC | LOC: ORTHO 15:34 | PROVIDERS: ATTEND Orthopaedic Surgery | DX: M75.102 Unspecified rotator cuff tear or rupture of left shoulder, not specified as traumatic (principal) ==

== ENCOUNTER 2021-10-11 17:56 | Emergency (ER) | payer BC ==
[~2021-10-11] VITALS: Ht 167 cm; Wt 80.0 kg
[2021-10-11] MEDS ORDERED: NS IV 1000 ML 1,000 ML IV STA (18:17)
[2021-10-11] MEDS ORDERED: NS IV 1000 ML 1,000 ML ONE (18:18)
--- NOTE | 2021-10-11 18:26 | ED Cardiac General ---
History of Present Illness General Chief Complaint: Cardiac/General Problems Stated Complaint: FLUCUATING HEARTRATE,CHEST TIGHTNESS,DIZZY,WEAK Source: patient Exam Limitations: no limitations History of Present Illness Date Seen by Provider: Oct 11, 2021 Time Seen by Provider: 17:41 Initial Comments 51-year-old female with no cardiac history coming in due to palpitations. Is been going on for about an hour and a half at this time. She says this is happened for years, but typically only last for about 5 seconds and then goes away. Today the feeling is not going away. She is never presented to the ER for it. Does not have any chest pain, shortness of breath, abdominal pain, nausea, vomiting, diarrhea, fever, chills, weakness, numbness, or any other concerns. Has not had any significant amount of caffeine recently. Has only had a few alcoholic beverages this week. Is otherwise denying any other acute complaints Allergies and Home Medications Allergies Coded Allergies: adhesive (Verified Allergy, Unknown, 08/25/20) doxycycline (Verified Allergy, Unknown, 12/23/18) metoclopramide (Verified Allergy, Unknown, 12/23/18) sulfamethoxazole (Verified Allergy, Unknown, 12/23/18) trimethoprim (Verified Allergy, Unknown, 12/23/18) Uncoded Allergies: SULFA (Allergy, Unknown, 12/23/18) Patient Home Medication List Home Medication List Reviewed: Yes Dicyclomine HCl (Dicyclomine HCl) 20 Mg Tablet, 20 MG PO QID Prescribed by: ANDRIA PURDY on 12/23/182045 Hydrocodone/Acetaminophen (Hydrocodone/Acetaminophen 5 MG/325 MG TAB) 1 Each Ta blet, 1 TAB PO Q4-6HR Prescribed by: ANDRIA PURDY on 12/23/182045 Ondansetron (Ondansetron Odt) 4 Mg Tab.rapdis, 4 MG PO Q6H Prescribed by: ANDRIA PURDY on 12/23/182045 Review of Systems Review of Systems Constitutional: No chills, No fever EENTM: No Blurred Vision Respiratory: Denies Cough, Denies Shortness of Air Cardiovascular: Denies Chest Pain; Palpitations Gastrointestinal: Denies Abdominal Pain, Denies Nausea, Denies Vomiting Genitourinary: No Symptoms Reported Musculoskeletal: no symptoms reported Skin: no symptoms reported Psychiatric/Neurological: No Symptoms Reported Endocrine: No Symptoms Reported Hematologic/Lymphatic: No Symptoms Reported All Other Systems Reviewed Negative Unless Noted: Yes Past Qyvnkrx-Hzxxyo-Bjpmmb Hx Patient Social History Tobacco Use?: No Seasonal Allergies Seasonal Allergies: No Past Medical History Surgeries: Yes (EGD, Colonoscopy, Edometrial ablation, bilateral knee scope,gastric bypass) Section, Eye Surgery, Gallbladder, Orthopedic Respiratory: No Cardiac: No Neurological: No Genitourinary: No Gastrointestinal: Yes Gastroesophageal Reflux Musculoskeletal: No Endocrine: No HEENT: No (Bilateral lasik procedure) Cancer: No Psychosocial: No Integumentary: No Blood Disorders: No Physical Exam Vital Signs Vital Signs - First Documented 10/11/21 18:36 Temp 35.1 Pulse 161 Resp 20 B/P (MAP) 100/67 (78) Pulse Ox 95 O2 Delivery Room Air Capillary Refill : Height, Weight, BMI Height: 5'6.50" Weight: 275lbs. oz. 124.445807wf; 42.00 BMI Method:Stated General Appearance: No Apparent Distress, WD/WN HEENT: PERRL/EOMI, Normal ENT Inspection, Pharynx Normal Neck: Full Range of Motion, Normal Inspection, Non Tender, Supple Respiratory: Chest Non Tender, Lungs Clear, Normal Breath Sounds, No Accessory Muscle Use, No Respiratory Distress Cardiovascular: No Edema, Normal Peripheral Pulses, Tachycardia Gastrointestinal: Normal Bowel Sounds, Non Tender, Soft; No Distended, No Guarding Extremity: Normal Capillary Refill, Normal Inspection, Normal Range of Motion, Non Tender, No Calf Tenderness, No Pedal Edema Neurologic/Psychiatric: Alert, No Motor/Sensory Deficits, Normal Mood/Affect Skin: Normal Color, Warm/Dry Lymphatic: No Adenopathy Progress/Results/Core Measures Results/Orders Lab Results Laboratory Tests Test 10/11/21 18:14 Range/Units White Blood Count 6.9 4.3-11.0 10^3/uL Red Blood Count 3.87 3.80-5.11 10^6/uL Hemoglobin 13.1 11.5-16.0 g/dL Hematocrit 38 35-52 % Mean Corpuscular Volume 99 80-99 fL Mean Corpuscular Hemoglobin 34 25-34 pg Mean Corpuscular Hemoglobin Concent 34 32-36 g/dL Red Cell Distribution Width 12.7 10.0-14.5 % Platelet Count 267 130-400 10^3/uL Mean Platelet Volume 9.8 9.0-12.2 fL Immature Granulocyte % (Auto) 0 % Neutrophils (%) (Auto) 46 42-75 % Lymphocytes (%) (Auto) 46 H 12-44 % Monocytes (%) (Auto) 6 0-12 % Eosinophils (%) (Auto) 1 0-10 % Basophils (%) (Auto) 1 0-10 % Neutrophils # (Auto) 3.2 1.8-7.8 10^3/uL Lymphocytes # (Auto) 3.2 1.0-4.0 10^3/uL Monocytes # (Auto) 0.4 0.0-1.0 10^3/uL Eosinophils # (Auto) 0.1 0.0-0.3 10^3/uL Basophils # (Auto) 0.0 0.0-0.1 10^3/uL Immature Granulocyte # (Auto) 0.0 0.0-0.1 10^3/uL Sodium Level 142 135-145 MMOL/L Potassium Level 4.0 3.6-5.0 MMOL/L Chloride Level 102 98-107 MMOL/L Carbon Dioxide Level 25 21-32 MMOL/L Anion Gap 15 H 5-14 MMOL/L Blood Urea Nitrogen 20 H 7-18 MG/DL Creatinine 0.76 0.60-1.30 MG/DL Estimat Glomerular Filtration Rate 95 BUN/Creatinine Ratio 26 Glucose Level 102 70-105 MG/DL Calcium Level 10.0 8.5-10.1 MG/DL Magnesium Level 2.2 1.6-2.4 MG/DL My Orders Orders - PEARL LANCE MD Basic Metabolic Panel (10/11/21 18:17) Cbc With Automated Diff (10/11/21 18:17) Magnesium (10/11/21 18:17) Ns Iv 1000 Ml (Sodium Chloride 0.9%) (10/11/21 18:17) Ekg Tracing (10/11/21 18:17) Ekg Tracing (10/11/21 18:17) Metoprolol Succinate (Xl) Tab (Toprol Xl (10/11/21 18:17) Acetaminophen Tablet (Tylenol Tablet) (10/11/21 18:30) Ns Iv 1000 Ml (Sodium Chloride 0.9%) (10/11/21 18:18) Medications Given in ED Current Medications Medications Dose Ordered Sig/Hugo Route Start Time Stop Time Status Last Admin Dose Admin Acetaminophen 1,000 mg ONCE ONCE PO 10/11/21 18:30 10/11/21 18:31 DC 10/11/21 18:25 1,000 MG Vital Signs/I&O 10/11/21 18:36 Temp 35.1 Pulse 161 Resp 20 B/P (MAP) 100/67 (78) Pulse Ox 95 O2 Delivery Room Air Progress Progress Note : Progress Note 51-year-old female with above history coming in due to palpitations. ABCs were intact on presentation although she is tachycardic. On the monitor heart rate in the 160s. EKG consistent with SVT. Blood pressure around 100 systolic which she says is normal for her to be around 90-100 systolic. A modified Valsalva was performed with resolution of symptoms. She was given a bolus of IV fluids to help discourage the rhythm from coming back. She was also given metoprolol. Basic labs including electrolytes obtained. Initial ECG Impression Date: Oct 11, 2021 Initial ECG Impression Time: 18:06 Initial ECG Rate: 160 Initial ECG Rhythm: SVT Comment Narrow QRS, normal axis, some ST depressions globally which is likely rate dependent EKG : EKG Time: 18:08 Rate: 73 Rhythm: Normal Sinus Comment Narrow QRS, normal axis, no significant ST changes or T wave abnormalities Departure Impression Primary Impression: SVT (supraventricular tachycardia) Disposition: 01 HOME, SELF-CARE Condition: Improved Departure-Patient Inst. Decision time for Depature: 18:50 Referrals: ROC VILLEGAS MD (PCP/Family) Primary Care Physician MARIAH YOUNGBLOOD MD FACP FAC CCDS Patient Instructions: Supraventricular Tachycardia (SVT) Add. Discharge Instructions: I recommend following up with Dr. Youngblood in [place] who is a computer technician especially if you continue to have the symptoms randomly. There are medicines he can put you on to help prevent this from happening. I recommend trying the "modified valsava" maneuver which is what we did in the emergency department. You can google this if you forget how to do it. I would do it 2-3 times if you feel the symptoms again. If not successful then I would come to the ER. Work/School Note: Work Release Form Date Seen in the Emergency Department: Oct 11, 2021 Return to Work: Oct 12, 2021 Restrictions: No Restrictions PEARL LANCE MD Oct 11, 2021 18:26
[2021-10-11 18:27] LABS: BASOPHILS % (AUTO) 1 % (0-10); EOSINOPHILS # (AUTO) 0.1 10^3/uL (0.0-0.3); EOSINOPHILS % (AUTO) 1 % (0-10); HEMATOCRIT 38 % (35-52); HEMOGLOBIN 13.1 g/dL (11.5-16.0); LYMPHOCYTES # (AUTO) 3.2 10^3/uL (1.0-4.0); LYMPHOCYTES % (AUTO) 46 % (12-44); MEAN CORPUSCULAR HEMOGLOBIN 34 pg (25-34); MEAN CORPUSCULAR HGB CONC 34 g/dL (32-36); MEAN CORPUSCULAR VOLUME 99 fL (80-99); MEAN PLATELET VOLUME 9.8 fL (9.0-12.2); MONOCYTES # (AUTO) 0.4 10^3/uL (0.0-1.0); MONOCYTES % (AUTO) 6 % (0-12); NEUTROPHILS # (AUTO) 3.2 10^3/uL (1.8-7.8); NEUTROPHILS % (AUTO) 46 % (42-75); PLATELET COUNT 267 10^3/uL (130-400); WHITE BLOOD COUNT 6.9 10^3/uL (4.3-11.0)
[2021-10-11] MEDS ORDERED: ACETAMINOPHEN 500 MG TAB (TYLENOL) PO ONE (18:30)
[2021-10-11 18:39] LABS: CREATININE SERUM 0.76 MG/DL (0.60-1.30); MAGNESIUM 2.2 MG/DL (1.6-2.4)
[2021-10-11 18:51] VITALS: BP 97/52
== END 2021-10-11 18:55 | disposition home or self-care (01) ==
LOC: EDUNIT# 17:56 → ER FS 17:57
DX: I47.1 Supraventricular tachycardia (principal)
CPT/HCPCS: 36415; 80048; 83735; 85025; 93005

== ENCOUNTER → 2021-10-22 | Outpatient (CLI) | payer BC | LOC: LAB FS 10:16 | PROVIDERS: ATTEND Family Medicine | DX: I95.1 Orthostatic hypotension (principal); R00.2 Palpitations | CPT/HCPCS: 36415; 84443 ==

== ENCOUNTER 2021-10-26 11:00 | Outpatient (RCR) | payer BC | END 2021-11-13 | disposition home or self-care (01) | LOC: CARD 11:00 | PROVIDERS: ATTEND Internal Medicine Cardiovascular Disease | DX: I08.2 Rheumatic disorders of both aortic and tricuspid valves (principal); I47.1 Supraventricular tachycardia | CPT/HCPCS: 93306 ==

== ENCOUNTER → 2021-11-15 | Outpatient (CLI) | payer BC | LOC: ORTHO 15:54 | PROVIDERS: ATTEND Orthopaedic Surgery | DX: M75.102 Unspecified rotator cuff tear or rupture of left shoulder, not specified as traumatic (principal) ==

== ENCOUNTER → 2021-12-13 | Outpatient (CLI) | payer BC ==
--- NOTE | 2021-12-13 16:47 | Diagnostic Imaging Report ---
MRI LT UPPER EXT JOINT W/O Technique: Multiplanar, multisequence MR imaging of the left shoulder was performed without contrast. Comparison: Left shoulder radiographs of 09/12/2021 Indication: Left shoulder pain Findings: Rotator cuff: Low-grade partial-thickness interstitial tear in the posterior aspect of the supraspinatus has a width measuring approximately 1 cm. No tendon retraction. The infraspinous, teres minor and subscapularis are all intact. No rotator cuff muscle atrophy or edema. Glenoid labrum: No chondral labral separation or para-labral cyst. Long head of biceps: Long head of biceps is normally positioned within the bicipital groove. The intracapsular segment is intact. Bones and cartilage: Humeral head is normal in morphology without fracture or focal osseous lesion. No glenohumeral chondromalacia. The acromioclavicular joint is normal in alignment without significant degenerative change. Soft tissues: No glenohumeral joint effusion. No MRI findings to suggest adhesive capsulitis. There is a trace amount of edema within the subacromial/subdeltoid space. IMPRESSION: 1. Low-grade partial-thickness interstitial tear in the posterior supraspinatus. 2. The long head of the biceps is intact. 3. No osseous abnormality. Dictated by: Dictated on workstation # [id number]
== END ==
LOC: RAD 14:45
PROVIDERS: ATTEND Orthopaedic Surgery
DX: M75.102 Unspecified rotator cuff tear or rupture of left shoulder, not specified as traumatic (principal)
CPT/HCPCS: 73221

== ENCOUNTER → 2021-12-14 | Outpatient (CLI) | payer BC ==
[2021-12-14 11:38] LABS: BASOPHILS % (AUTO) 1 % (0-10); EOSINOPHILS # (AUTO) 0.1 10^3/uL (0.0-0.3); EOSINOPHILS % (AUTO) 1 % (0-10); HEMATOCRIT 35 % (35-52); HEMOGLOBIN 12.1 g/dL (11.5-16.0); LYMPHOCYTES # (AUTO) 1.9 10^3/uL (1.0-4.0); LYMPHOCYTES % (AUTO) 40 % (12-44); MEAN CORPUSCULAR HEMOGLOBIN 35 pg (25-34); MEAN CORPUSCULAR HGB CONC 34 g/dL (32-36); MEAN CORPUSCULAR VOLUME 101 fL (80-99); MEAN PLATELET VOLUME 9.6 fL (9.0-12.2); MONOCYTES # (AUTO) 0.4 10^3/uL (0.0-1.0); MONOCYTES % (AUTO) 8 % (0-12); NEUTROPHILS # (AUTO) 2.3 10^3/uL (1.8-7.8); NEUTROPHILS % (AUTO) 50 % (42-75); PLATELET COUNT 230 10^3/uL (130-400); WHITE BLOOD COUNT 4.6 10^3/uL (4.3-11.0)
== END ==
LOC: LAB FS 11:12
PROVIDERS: ATTEND Surgery
DX: Z98.84 Bariatric surgery status (principal)
CPT/HCPCS: 36415; 82728; 83540; 83550; 85025

== ENCOUNTER 2022-01-24 05:29 | Outpatient (CLI) | payer BC ==
[~2022-01-24] VITALS: Ht 167 cm; Wt 75.4 kg
[2022-01-24] MEDS ORDERED: MONT10TA21 PO (15:44)
[2022-01-24] MEDS ORDERED: LEVO88CA4 PO (15:44)
[2022-01-24] MEDS ORDERED: FLUO20CA42 PO (15:44)
[2022-01-24] MEDS ORDERED: CETI10TA24 PO (15:44)
[2022-01-24] MEDS ORDERED: BUPR-42 PO (15:44)
[2022-01-24] MEDS ORDERED: BIOT1TAB PO (15:44)
[2022-01-24] MEDS ORDERED: PANT20TA18 PO (15:44)
[2022-01-24] MEDS ORDERED: MELA1TAB27 PO (15:44)
[2022-01-24] MEDS ORDERED: MULT1CAP54 PO (15:44)
[2022-01-24] MEDS ORDERED: CALC-308 PO (15:44)
[2022-01-24] MEDS ORDERED: CYAN1TAB26 PO (15:44)
[2022-01-24] MEDS ORDERED: MV-M1TAB20 PO (15:44)
== END 2022-01-24 15:46 | disposition home or self-care (01) ==
LOC: PREOP 05:29
PROVIDERS: ATTEND Orthopaedic Surgery
DX: Z01.818 Encounter for other preprocedural examination (principal)

== ENCOUNTER 2022-02-01 08:23 | Day surgery (SDC) | payer BC ==
[~2022-02-01] VITALS: Ht 167 cm; Wt 75.4 kg
[2022-02-01] VITALS (11 sets, daily range): BP systolic 100–128; BP diastolic 54–80
[~2022-02-01 08:23] MED LIST changes: +BIOT1TAB PO; +BUPR-42 PO; +CALC-308 PO; +CETI10TA24 PO; +CYAN1TAB26 PO; +FLUO20CA42 PO; +LEVO88CA4 PO; +MELA1TAB27 PO; +MONT10TA21 PO; +MULT1CAP54 PO; +MV-M1TAB20 PO; +PANT20TA18 PO
[2022-02-01] MEDS ORDERED: ceFAZolin INJECTION 1,000 MG VIAL IV ONE (08:45)
[2022-02-01] MEDS ORDERED: LACTATED RINGERS 1,000 ML IV PRN (08:45)
[2022-02-01] MEDS ORDERED: ROPIVACAINE 5MG/ML 30ML VIAL ONE (08:47)
[2022-02-01] MEDS ORDERED: LIDOCAINE PF 2% 5 ML (XYLOCAINE) VIAL ONE (08:47)
[2022-02-01] MEDS ORDERED: MIDAZOLAM 2 MG/2 ML (VERSED) VIAL ONE ×2 (08:47→09:01)
[2022-02-01] MEDS ORDERED: fentaNYL INJ 100 MCG/2 ML AMP ONE ×2 (08:47→09:01)
[2022-02-01] MEDS ORDERED: EPINEPHrine INJECTION 1 MG/ML AMP ONE (09:08)
[2022-02-01] MEDS ORDERED: proPOfol 200 MG/20 ML (DIPRIVAN) VIAL IV ONE (10:48)
[2022-02-01] MEDS ORDERED: ONDANSETRON 4 MG/2 ML (SDV) Z0FRAN ONE (10:49)
--- NOTE | 2022-02-01 10:49 | Operative Report - Ortho ---
Operative Report Surgeon (s)/[employer] Foreman (s) Surgeon MADYSON CHAWLA MD [employer]wall Foreman n/a Pre-Operative Diagnosis LEFT SHOULDER ROTATOR CUFF TEAR/IMPINGEMENT Post-Operative Diagnosis same Operative Report Date of Procedure: Feb 01, 2022 Name of Procedure Performed: Left Shoulder Arthroscopy with Debridement of Partial Thickness Rotator Cuff Tear and Subacromial Decompression Description & Findings After obtaining informed consent and marking the patient in the preoperative holding area, patient received regional anesthesia. Patient did receive intravenous antibiotics. Patient was taken to the operating room. General anesthesia was induced and the patient was placed in the lateral decubitus position with the left side up. Left upper extremity was prepped and draped in the usual sterile fashion. Surgical timeout was taken. Posterior portal was established. Diagnostic glenohumeral arthroscopy was performed with the following findings: biceps tendon was intact, intact articular cartilage, no loose bodies in the axillary pouch, intact articular side of the rotator cuff, and intact labrum. Instruments were then taken up into the subacromial space. Lateral portal was established. Shaver was used to remove bursal tissue. Subacromial enthesiophyte and bursal sided partial thickness tearing was noted. Shaver was used to debride the partial thickness cuff tear to a stable border. Payette was then utilized to perform a subacromial decompression. Probe was inserted and the decompression was flat. This was accepted. Instruments were removed. Incisions were closed with 3-0 nylon sutures. Wounds were dressed with xeroform, 4x4s, ABD, and tape. Patient was placed in a sling postoperatively Anesthesia Type General plus regional Estimated Blood Loss minimal Specimen(s) collected/removed None MADYSON CHAWLA MD Feb 01, 2022 10:49
[2022-02-01] MEDS ORDERED: OXC5T PO (10:52)
[2022-02-01] MEDS ORDERED: SEVOFLURANE (ULTANE) 15 ML INHAL SOLN ONE (10:54)
[2022-02-01] MEDS ORDERED: ROCURONIUM 50 MG/5 ML (ZEMURON) VIAL IV ONE (10:54)
[2022-02-01] MEDS ORDERED: GLYCOPYRROLATE 0.2 MG/ML (ROBINUL) 2 ML VIAL ONE (10:55)
[2022-02-01] MEDS ORDERED: NEOSTIGMINE (BLOXIVERZ ) 1 MG/1ML 10 ML VIAL ONE (10:55)
--- NOTE | 2022-02-01 12:11 | Anesthesia-General Post-Op ---
General Patient Condition Mental Status/LOC: Same as Preop Cardiovascular: Satisfactory Nausea/Vomiting: Absent Respiratory: Satisfactory Pain: Controlled Complications: Absent Post Op Complications Complications None Follow Up Care/Instructions Patient Instructions None needed. Anesthesia/Patient Condition Patient Condition Patient is doing well, no complaints, stable vital signs, no apparent adverse anesthesia problems. No complications reported per nursing. BRANDI CABAN CRNA Feb 01, 2022 12:11
== END 2022-02-01 14:27 | disposition home or self-care (01) ==
LOC: SDC 08:23
PROVIDERS: ATTEND Orthopaedic Surgery
DX: M75.112 Incomplete rotator cuff tear or rupture of left shoulder, not specified as traumatic (principal); E66.01 Morbid (severe) obesity due to excess calories; Z79.899 Other long term (current) drug therapy; Z68.27 Body mass index [BMI] 27.0-27.9, adult
CPT/HCPCS: 84703; 87081

== ENCOUNTER → 2022-02-14 | Outpatient (CLI) | payer BC ==
[~2022-02-14] MED LIST changes: +OXC5T PO
== END ==
LOC: ORTHO 15:12
PROVIDERS: ATTEND Orthopaedic Surgery
DX: J30.9 Allergic rhinitis, unspecified (principal)

== ENCOUNTER → 2022-06-13 | Outpatient (CLI) | payer BC | LOC: ORTHO 11:18 | PROVIDERS: ATTEND Orthopaedic Surgery | DX: M67.814 Other specified disorders of tendon, left shoulder (principal) | CPT/HCPCS: 99213 ==

== ENCOUNTER → 2022-08-15 | Outpatient (CLI) | payer BC | LOC: ORTHO 10:14 | PROVIDERS: ATTEND Orthopaedic Surgery | DX: M75.22 Bicipital tendinitis, left shoulder (principal); R20.2 Paresthesia of skin | CPT/HCPCS: 99213 ==